=== PATIENT | female | born 2000 | race American Indian/Alaskan Native ===

== ENCOUNTER 2020-03-07 18:58 | Emergency (ER) | payer SELFPAY ==
[2020-03-07 19:03] VITALS: BP 140/76
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
== END 2020-03-07 20:45 | disposition home or self-care (01) ==
LOC: ED 18:58
DX: M54.5 Low back pain (principal); Z79.899 Other long term (current) drug therapy; V49.59XA Passenger injured in collision with other motor vehicles in traffic accident, initial encounter; Y93.89 Activity, other specified; Y92.488 Other paved roadways as the place of occurrence of the external cause; Y99.8 Other external cause status
CPT/HCPCS: 99282